=== PATIENT | female | born 1990 | race Caucasian/White ===

== ENCOUNTER 2020-09-10 20:43 | Emergency (ER) | payer OTHER ==
[~2020-09-10 20:43] MED LIST: ACETAMINOPHEN325 MG PO; BACTRIM DS TAB1 EACH PO; FEOSOL325 M1 PO; KEFLEX250 MG PO; MOTRIN600 MG PO; NARCAN4 MG; PRENATAL FORMU1 EACH PO
[2020-09-10 21:28] LABS: BILIRUBIN NEGATIVE (NEGATIVE); BLOOD 3+ Ery/uL (NEGATIVE); CLARITY HAZY (CLEAR); COLOR YELLOW (YELLOW); GLUCOSE (U) NORMAL (NORMAL); LEUKOCYTES NEGATIVE Leu/uL (NEGATIVE); NITRITE NEGATIVE (NEGATIVE); PROTEIN 1+ mg/dL (NEGATIVE); SPECIFIC GRAVITY 1.025 (1.001-1.030); UROBILINOGEN 0.2 mg/dL (0.2-1.0)
[2020-09-10 21:36] LABS: BACTERIA TRACE; SQUAMOUS EPITHELIAL CELLS >50; URINARY RBC RARE
[2020-09-10 22:14] LABS: BASOPHIL 0.5 % (0-2); EOSINOPHIL 3.5 % (0-5); HGB 11.5 g/dl (12.5-16.0); LYMPHOCYTE 37.1 % (15-48); MCH 24.7 pg (25.0-31.0); MCHC 31.1 g/dL (32.0-36.0); MCV 79.6 fL (78.0-100.0); MPV 10.2 fL (6.0-9.5); NEUTROPHIL 51.7 % (41-80); NRBC 0; PLT 276 K/uL (150-400); RBC 4.65 M/uL (4.20-5.40); RDW 14.8 % (11.5-14.0); WBC 8.3 K/uL (4.0-10.5)
[2020-09-10 22:23] LABS: BUN/CREAT RATIO (CALC) 24.2 RATIO; CREATININE 0.66 mg/dL (0.51-0.95); POTASSIUM 3.6 mmol/L (3.5-5.1)
[2020-09-10 23:08] LABS: AMPHETAMINES NEGATIVE (NEGATIVE); BARBITURATES NEGATIVE (NEGATIVE); ECSTASY (MDMA) POSITIVE (NEGATIVE); MARIJUANA (THC) POSITIVE (NEGATIVE); METHADONE NEGATIVE (NEGATIVE); OPIATES NEGATIVE (NEGATIVE)
[2020-09-10 23:09] LABS: OXYCODONE NEGATIVE (NEGATIVE)
[2020-09-12] MEDS ORDERED: ASPIRIN EC81 MG PO (06:26)
[2020-09-12] MEDS ORDERED: PRENATAL FORMU1 EACH PO (06:26)
[2020-09-12] MEDS ORDERED: REGLAN10 MG PO (06:27)
[2020-09-12] MEDS ORDERED: LABETALOL HCL200 MG PO (06:27)
[2020-09-13] MEDS ORDERED: IBUPROFEN800 M1 PO (10:07)
[2020-09-13] MEDS ORDERED: FEOSOL325 MG PO (10:07)
== END 2020-09-11 00:41 | disposition home or self-care (01) ==
LOC: FER 20:43
PROVIDERS: Emergency Medicine; Nurse Practitioner Family
DX: O02.1 Missed abortion (principal); I10 Essential (primary) hypertension; Z98.890 Other specified postprocedural states
CPT/HCPCS: 36415; 76805; 80048; 80305; 81001; 84702; 85025; J2790

== ENCOUNTER → 2020-09-13 | Day surgery (SDC) | payer OTHER ==
[~2020-09-13] MED LIST changes: +ASPIRIN EC81 MG PO; +FEOSOL325 MG PO; +IBUPROFEN800 M1 PO; +LABETALOL HCL200 MG PO; +REGLAN10 MG PO
== END | disposition home or self-care (01) ==
LOC: FAS 07:04
DX: O02.1 Missed abortion (principal); I10 Essential (primary) hypertension; K21.9 Gastro-esophageal reflux disease without esophagitis; R11.10 Vomiting, unspecified; F17.210 Nicotine dependence, cigarettes, uncomplicated; Z20.822 Contact with and (suspected) exposure to COVID-19; Z98.890 Other specified postprocedural states
CPT/HCPCS: 86850; 86870; 86880; 86900; 86901; 86906; J1885; J2210; J2250; J2405; J2550; J2704; J2916; J3010; J7050; J7120

== ENCOUNTER 2021-08-28 11:17 | Emergency (ER) | payer OTHER | END 2021-08-28 15:35 | disposition left against medical advice (07) | LOC: FER 11:17 | DX: O21.9 Vomiting of pregnancy, unspecified (principal); Z3A.18 18 weeks gestation of pregnancy; Z53.21 Procedure and treatment not carried out due to patient leaving prior to being seen by health care provider ==

== ENCOUNTER 2022-01-07 06:56 | Inpatient (IN) | payer OTHER ==
[~2022-01-07] VITALS: Ht 157.5 cm; Wt 65.3 kg
[2022-01-07 07:52] LABS: HCT 36.2 % (37.0-47.0); MCH 27.6 pg (25.0-31.0); MCHC 33.1 g/dL (32.0-36.0); MCV 83.2 fL (78.0-100.0); MPV 11.9 fL (6.0-9.5); RBC 4.35 M/uL (4.20-5.40); RDW 14.6 % (11.5-14.0); WBC 10.8 K/uL (4.0-10.5)
[2022-01-07 10:55] LABS: BILIRUBIN NEGATIVE (NEGATIVE); BLOOD NEGATIVE Ery/uL (NEGATIVE); CLARITY CLEAR (CLEAR); COLOR YELLOW (YELLOW); GLUCOSE (U) NORMAL (NORMAL); LEUKOCYTES NEGATIVE Leu/uL (NEGATIVE); NITRITE NEGATIVE (NEGATIVE); PROTEIN NEGATIVE (NEGATIVE)
[2022-01-07 11:08] LABS: AMPHETAMINES NEGATIVE (NEGATIVE); BARBITURATES NEGATIVE (NEGATIVE); ECSTASY (MDMA) POSITIVE (NEGATIVE); MARIJUANA (THC) POSITIVE (NEGATIVE); METHADONE NEGATIVE (NEGATIVE); OPIATES NEGATIVE (NEGATIVE); OXYCODONE NEGATIVE (NEGATIVE)
[2022-01-07 15:52] LABS: HGB 10.2 g/dl (12.5-16.0); MCH 27.3 pg (25.0-31.0); MCHC 32.9 g/dL (32.0-36.0); MCV 83.1 fL (78.0-100.0); MPV 11.3 fL (6.0-9.5); RBC 3.73 M/uL (4.20-5.40); RDW 14.6 % (11.5-14.0); WBC 13.5 K/uL (4.0-10.5)
[2022-01-07 16:06] LABS: INR 1.06 (0.9-1.2); PROTHROMBIN TIME 13.2 SECONDS (11.8-13.4)
[2022-01-07 16:07] LABS: PTT 31.6 SECONDS (24.4-34.7)
[2022-01-08 07:42] LABS: HCT 27.7 % (37.0-47.0); HGB 8.9 g/dl (12.5-16.0); MCH 27.1 pg (25.0-31.0); MCHC 32.1 g/dL (32.0-36.0); MCV 84.2 fL (78.0-100.0); MPV 11.5 fL (6.0-9.5); RBC 3.29 M/uL (4.20-5.40); RDW 14.5 % (11.5-14.0); WBC 9.2 K/uL (4.0-10.5)
[2022-01-08 07:48] LABS: PROTHROMBIN TIME 12.6 SECONDS (11.8-13.4); PTT 31.7 SECONDS (24.4-34.7)
[2022-01-08 07:57] LABS: ALBUMIN 1.8 g/dL (3.4-5.0); BILIRUBIN - TOTAL 0.3 mg/dL (0.2-1.0); BUN/CREAT RATIO (CALC) 17.6 RATIO; CREATININE 0.68 mg/dL (0.51-0.95); GLOBULIN (CALCULATION) 2.7 g/dL; POTASSIUM 3.6 mmol/L (3.5-5.1); TOTAL PROTEIN 4.5 g/dL (6.4-8.2)
[2022-01-08 11:05] LABS: BASOPHIL 0.4 % (0-2); EOSINOPHIL 1.9 % (0-5); HCT 27.6 % (37.0-47.0); LYMPHOCYTE 20.6 % (15-48); MCH 27.4 pg (25.0-31.0); MCHC 32.6 g/dL (32.0-36.0); MCV 83.9 fL (78.0-100.0); MONOCYTE 7.3 % (0-12); MPV 11.2 fL (6.0-9.5); NEUTROPHIL 67.6 % (41-80); NRBC 0; PLT 223 K/uL (150-400); RBC 3.29 M/uL (4.20-5.40); RDW 14.4 % (11.5-14.0); WBC 11.8 K/uL (4.0-10.5)
[2022-01-08 11:17] LABS: FIBRINOGEN 209 mg/dL (206-518)
[2022-01-08 11:18] LABS: PROTHROMBIN TIME 12.6 SECONDS (11.8-13.4); PTT 31.4 SECONDS (24.4-34.7)
[2022-01-08 11:40] LABS: D-DIMER > 20.00 ug/mLFEU (0.00-0.41)
[2022-01-08 13:25] LABS: HCT 25.5 % (37.0-47.0); HGB 8.3 g/dl (12.5-16.0); MCH 27.2 pg (25.0-31.0); MCHC 32.5 g/dL (32.0-36.0); MCV 83.6 fL (78.0-100.0); MPV 11.2 fL (6.0-9.5); RBC 3.05 M/uL (4.20-5.40); RDW 14.5 % (11.5-14.0); WBC 13.3 K/uL (4.0-10.5)
[2022-01-08 13:31] LABS: INR 1.08 (0.9-1.2); PROTHROMBIN TIME 13.4 SECONDS (11.8-13.4); PTT 44.1 SECONDS (24.4-34.7)
[2022-01-08 13:46] LABS: D-DIMER 15.87 ug/mLFEU (0.00-0.41)
[2022-01-08 18:59] LABS: HCT 19.9 % (37.0-47.0); MCH 27.4 pg (25.0-31.0); MCHC 32.7 g/dL (32.0-36.0); MPV 10.1 fL (6.0-9.5); RBC 2.37 M/uL (4.20-5.40); RDW 14.6 % (11.5-14.0); WBC 11.4 K/uL (4.0-10.5)
[2022-01-08 19:05] LABS: HGB 6.5 g/dl (12.5-16.0)
[2022-01-08 19:36] LABS: PTT 32.9 SECONDS (24.4-34.7)
[2022-01-08 19:37] LABS: INR 1.07 (0.9-1.2); PROTHROMBIN TIME 13.3 SECONDS (11.8-13.4)
[2022-01-08 19:50] LABS: D-DIMER 4.19 ug/mLFEU (0.00-0.41)
[2022-01-09 09:06] LABS: HCT 27.9 % (37.0-47.0); MCHC 32.6 g/dL (32.0-36.0); MCV 82.8 fL (78.0-100.0); MPV 10.6 fL (6.0-9.5); RBC 3.37 M/uL (4.20-5.40); WBC 8.3 K/uL (4.0-10.5)
[2022-01-09 09:07] LABS: HGB 9.1 g/dl (12.5-16.0)
[2022-01-09 09:24] LABS: INR 1.05 (0.9-1.2); PROTHROMBIN TIME 13.1 SECONDS (11.8-13.4)
[2022-01-09 09:25] LABS: D-DIMER 1.35 ug/mLFEU (0.00-0.41)
== END 2022-01-10 12:14 | disposition home or self-care (01) | DRG 787 ==
LOC: FOD 06:56 → FOB 06:56 → FOD 10:00 → FOB 10:05 → FOD 10:05 → FOB 01-10 12:14
PROVIDERS: ADMIT Obstetrics & Gynecology
PROC: 3E033VJ Introduction of Other Hormone into Peripheral Vein, Percutaneous Approach (ICD-10-PCS; 2022-01-07)
PROC: 10D00Z1 Extraction of Products of Conception, Low, Open Approach (ICD-10-PCS; principal; 2022-01-07 09:00)
PROC: 3E0P7VZ Introduction of Hormone into Female Reproductive, Via Natural or Artificial Opening (ICD-10-PCS; 2022-01-07 09:00)
PROC: 30233K1 Transfusion of Nonautologous Frozen Plasma into Peripheral Vein, Percutaneous Approach (ICD-10-PCS; 2022-01-08)
PROC: 30233N1 Transfusion of Nonautologous Red Blood Cells into Peripheral Vein, Percutaneous Approach (ICD-10-PCS; 2022-01-08)
PROC: 30233D1 Transfusion of Nonautologous Pathogen Reduced Cryoprecipitated Fibrinogen Complex into Peripheral Vein, Percutaneous Approach (ICD-10-PCS; 2022-01-08)
PROC: 30233N1 Transfusion of Nonautologous Red Blood Cells into Peripheral Vein, Percutaneous Approach (ICD-10-PCS; 2022-01-08)
PROC: 30233K1 Transfusion of Nonautologous Frozen Plasma into Peripheral Vein, Percutaneous Approach (ICD-10-PCS; 2022-01-08)
PROC: 3E0334Z Introduction of Serum, Toxoid and Vaccine into Peripheral Vein, Percutaneous Approach (ICD-10-PCS; 2022-01-09)
DX: O34.211 Maternal care for low transverse scar from previous cesarean delivery (principal); O10.92 Unspecified pre-existing hypertension complicating childbirth; D62 Acute posthemorrhagic anemia; O98.413 Viral hepatitis complicating pregnancy, third trimester; O98.22 Gonorrhea complicating childbirth; O99.334 Smoking (tobacco) complicating childbirth; B19.20 Unspecified viral hepatitis C without hepatic coma; Z20.822 Contact with and (suspected) exposure to COVID-19; O40.3XX0 Polyhydramnios, third trimester, not applicable or unspecified; F17.210 Nicotine dependence, cigarettes, uncomplicated; O99.02 Anemia complicating childbirth; Z37.0 Single live birth; Z79.899 Other long term (current) drug therapy; Z80.3 Family history of malignant neoplasm of breast; Z3A.37 37 weeks gestation of pregnancy
CPT/HCPCS: 36415; 36430; 80053; 80305; 81003; 85025; 85379; 85384; 85461; 85610; 85730; 86850; 86900; 86901; 86922; 87088; J0690; J1885; J2370; J2405; J2790; J2916; J3010; J7030; J7050; J7120; P9012; P9016; P9017; U0002